=== PATIENT | female | born 1955 | race Caucasian/White ===

== ENCOUNTER 2020-08-11 10:42 | Day surgery (SDC) | payer BC, OTHER ==
[~2020-08-11 10:42] MED LIST: Dexamethasone 20 MG/5 ML VIAL ONE; Glycopyrrolate 0.2 MG/ML 5 ML SYRINGE ONE; Ketorolac Tromethamine 30 MG/ML VIAL ONE; Lidocaine 1% PF 5 ML VIAL ONE; Ondansetron PF 4 MG/2 ML Vial ONE; PHENYLEPHRINE-NS 100 MCG/ML 10 ML SYRINGE ONE; PROPOFOL 200 MG/20 ML VIAL ONE; Rocuronium Bromide 10 MG/ML (10ML VIAL) ONE; Succinylcholine 200 MG/10 ml SYRINGE FS ONE
[2020-08-11 11:35] LABS: #Lymphocytes 1.4 thou/uL (1.20-3.40); #Neutrophils 9.1 thou/uL (1.40-6.50); %Basophils 0.4 % (0.0-1.0); %Eosinophils 0.3 % (0.0-10.0); %Lymphocytes 12.4 % (21.0-51.0); %Monocytes 8.5 % (0.0-10.0); %Neutrophils 78.4 % (42.0-75.0); Hemoglobin 13.7 g/dL (12.0-16.0); Mean Corpuscular HGB CONC 33.8 g/dL (32.0-36.0); Mean Corpuscular Hemoglobin 30.6 pg (27.0-31.0); Mean Corpuscular Volume 90.4 fL (78.0-98.0); Mean Platelet Volume 8.4 fL (7.4-10.4); Platelet Count 190 thou/uL (130-400); RBC Distribution Width 11.7 % (11.5-14.5); Red Blood Cell (RBC) Count 4.49 mill/uL (4.20-5.40); White Blood Cell (WBC) Count 11.6 thou/uL (4.8-10.8)
[2020-08-11 11:56] LABS: ALT (SGPT) 28 U/L (8-55); AST (SGOT) 24 U/L (5-34); Albumin 4.3 g/dL (3.4-4.8); Alkaline Phosphatase 82 U/L (40-110); Anion Gap 13 mmol/L (10-20); BUN (Urea Nitrogen) 13 mg/dL (9.8-20.1); Bilirubin, Total 0.7 mg/dL (0.2-1.2); Calc. Creatinine Clearance 0 mL/min (70-130); Calcium 9.3 mg/dL (7.8-10.44); Carbon Dioxide 26 mmol/L (23-31); Chloride 104 mmol/L (98-107); Globulin 3.2 g/dL (2.4-3.5); Glucose 101 mg/dL (80-115); Lipase 21 U/L (8-78); Potassium 4.2 mmol/L (3.5-5.1); Protein, Total 7.5 g/dL (6.0-8.3); Sodium 139 mmol/L (136-145)
[2020-08-11] MEDS ORDERED: Iopamidol-370 76% 500 ML 1 ML ONE (13:23)
--- NOTE | 2020-08-11 14:38 | CT ---
CT Abdomen Pelvis W Con History: Generalized abdominal pain Comparison: None. Findings: Mild bronchiectasis right middle lobe. Lung bases are clear. No pneumothorax. No pericardia l effusion. Multiple hepatic hypodensities. No hydronephrosis. Multiple very small sub-5 mm renal cortical hypodensities. Mild fullness of the le ft renal pelvis. No retroperitoneal periaortic adenopathy. Dilated appendix with multiple appendicoliths. Extensive periappendiceal inflammation. Portal mucosal enhancement of the base. Mild secondary inflammation of the terminal ileum. Impression: Complicated acute appendicitis with multiple appendicoliths and poor mucosal enhancement of the appendiceal base. The appendix courses from the posterior aspect of the cecum medially.
[2020-08-11] MEDS ORDERED: Piperacillin/Tazobactam 3.375 GM VIAL ONE (15:04)
[2020-08-11 15:43] LABS: Bacteria/HPF None Seen HPF (None Seen); Bilirubin Negative (Negative); Blood, Urine Trace (Negative); Clarity Clear (Clear); Glucose, Urine (Dipstick) Normal (Negative); Ketone, Urine 10 mg/dL (Negative); Leukocyte 25 Leu/uL (Negative); Mucous/LPF Rare LPF (<2+); Nitrite Negative (Negative); Protein, Urine (Dipstick) Negative (Neg-Trace); RBC/HPF 0-3 HPF (0-3); Specific Gravity, Urine 1.014 (1.002-1.036); Squamous Epithelial 0-3 HPF (0-3); Urobilinogen Normal mg/dL (Less than 2); WBC/HPF 0-3 HPF (0-3)
--- NOTE | 2020-08-11 15:44 | HP ---
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 Pain described as crampy, occasionally sharp and has settled in the right lower quadrant since yesterday. Maximum intensity of pain is rated at 9/10. Pain is associated with some nausea, but no emesis. The patient denies any change in her bowel habits. She denies any fevers or chills. PAST MEDICAL HISTORY: The patient denies any previous medical problems. PAST SURGICAL HISTORY: She denies any previous surgeries. 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 She denies any cigarette smoking, ethanol, or illicit drug abuse. FAMILY HISTORY: Noncontributory for this patient's age. CURRENT MEDICATIONS: None except for multivitamins. ALLERGIES: THE PATIENT DENIES ANY KNOWN DRUG ALLERGIES. REVIEW OF SYSTEMS: Ten-point review of systems essentially unremarkable except as stated in past medical history and chief complaint. PHYSICAL EXAMINATION: GENERAL: Reveals a 65-year-old normally developed woman, who is otherwise coherent, interactive, and appears stated age. The patient is alert and oriented x3, appears to be in no acute distress at the time of my evaluation. VITAL SIGNS: Include blood pressure 108/78, her pulse is 79, respiratory rate is 22, temperature is 99.1 degrees Fahrenheit, oxygen saturation is 99% on room air. HEENT: Normocephalic and atraumatic. Pupils are equal, round, reactive to light and accommodation. Extraocular muscles are intact bilaterally. She has no scleral icterus present. HEART: Reveals regular rate and rhythm. No murmurs or gallops auscultated. LUNGS: Clear to auscultation bilaterally. Her breathing is regular and nonlabored. ABDOMEN: Soft with right lower quadrant tenderness to palpation. She has a positive Rovsing sign. Liver and spleen otherwise nonpalpable below costal margins. EXTREMITIES: Reveal 2+ radial and pedal pulses bilaterally. No ankle edema is present. NEUROLOGIC: Reveals no focal deficits present. LABORATORY FINDINGS: Today includes CBC with 11,600 white blood cells, hemoglobin and hematocrit 13.7 and 40.6 respectively. Platelet count 190,000. Metabolic profile; sodium 139, potassium 4.2, chloride is 104, bicarb is 26, BUN 13, creatinine 0.76, glucose 101, total bilirubin 0.7, AST and ALT 24 and 28 respectively. Serum lipase is normal at 21. I have personally reviewed CT scan of the abdomen and pelvis, which is remarkable for dilated appendix with multiple intraluminal appendicoliths. There is periappendiceal fat stranding. No pneumoperitoneum or significant free fluid is noted. IMPRESSION: Acute appendicitis. RECOMMENDATIONS AND PLAN: Laparoscopic appendectomy. Above findings and plan has been discussed with the patient and her adult daughter at bedside in the presence of her nurse. I have advised the patient of the risks and benefits of proposed surgery to include, but not limited to bleeding, infection, injury to bowel or surrounding structures. The patient indicates understanding of information provided. I have answered her questions. She has granted consent for this admission and surgical intervention. Job ID: [id number]
[2020-08-11] MEDS ORDERED: Morphine 4 MG/ML VIAL ONE (17:21)
[2020-08-11 17:22] LABS: PTT 24.9 sec (22.9-36.1); Prothrombin Time 13.3 sec (12.0-14.7)
[2020-08-11] MEDS ORDERED: Bupivacaine 0.25% HCL 30 ML VIAL ONE (18:19)
[2020-08-11] MEDS ORDERED: Lidocaine 1% w/Epinephrine 1:100K 20 ML VIAL ONE (18:19)
[2020-08-11] MEDS ORDERED: Midazolam HCl 2 mg/2 ml Vial ONE (18:45)
[2020-08-11] MEDS ORDERED: Lidocaine 2% Jelly 5 ML TUBE ONE (18:45)
[2020-08-11] MEDS ORDERED: Fentanyl 100 MCG/2 ML VIAL ONE (18:45)
[2020-08-11 19:28] LABS: SARS-CoV-2 NAA Rapid Test Not Detected (NotDetected)
[2020-08-11] MEDS ORDERED: HYDROcodone/Acetaminophen 5/325 mg Tablet ONE (21:24)
--- NOTE | 2020-08-11 21:44 | OP ---
DATE OF PROCEDURE: 08/11/2020 PREOPERATIVE DIAGNOSIS: Acute appendicitis. POSTOPERATIVE DIAGNOSIS: Acute appendicitis. PROCEDURE PERFORMED: Laparoscopic appendectomy. ANESTHESIA: General endotracheal. ESTIMATED BLOOD LOSS: 5 mL. FLUIDS GIVEN: 1000 mL of crystalloids. COUNTS: Sponge and instrument counts were verified as correct x2. COMPLICATIONS: None apparent at the time of operation. INDICATIONS FOR OPERATION: A 65-year-old woman, presented with insidious onset of periumbilical abdominal pain 3 days duration, which has settled in the right lower quadrant. Clinical and radiographic examination were consistent with acute appendicitis, for which the patient was brought to the operating room for laparoscopic appendectomy. Findings are consistent with dilated appendix with multiple appendicoliths. There was surrounding inflammation around the cecum and localized perforation. DESCRIPTION OF PROCEDURE: Informed consent was obtained from the patient, was brought to the operating room and placed in supine position. Following general anesthesia, the abdomen was sterilely prepped and draped in usual fashion. The skin below the umbilicus was infiltrated with 0.25% Marcaine with epinephrine. A small curvilinear infraumbilical incision was made using 11 scalpel. Umbilical stalk was grasped with Vinay and elevated. Veress needle was inserted through the incision and placed in peritoneal cavity through which the abdomen was insufflated with 2.5 L of CO2 gas. Intraabdominal pressure noted at 1 mmHg. Following abdominal insufflation, Veress needle was removed and a 5 mm trocar introduced using a Visiport under laparoscopy. Laparoscopy confirmed proper placement of the port. No injuries to underlying structures. Additional laparoscopy reveals the right lower quadrant completely obscured by omental adhesions. Under direct laparoscopy, two 5 mm suprapubic and left lower quadrant ports were placed after the overlying skin infiltrated with 0.25% Marcaine with epinephrine. Appropriate incision was made. The patient was placed in a Trendelenburg position, rotated to her left. I introduced a Prestige grasper through the left lower quadrant port site, using this to bluntly take down omental adhesions to reveal markedly dilated retrocecal appendix which is walled up by a loop of distal ileum. The ileal adhesions were bluntly taken down. Care taken to avoid injuries to the serosa. I then introduced the Endo Boyd forceps through the suprapubic port site grasping the appendix, which was elevated. Using the LigaSure device to serially divide the mesoappendix down to the base with good hemostasis. The appendix itself was divided at the appendicocecal junction between Endoloop and delivered of the abdominal cavity using an EndoCatch. Operative site was inspected for good hemostasis. Finding no other pathology, exploration was terminated. The abdomen was desufflated. All ports and instruments removed and accounted for x2. Skin incisions were closed using 4-0 Monocryl suture in subcuticular fashion. Dermabond was applied over incisional closure. The patient tolerated the operation without any apparent complication and was returned to recovery room in satisfactory condition. Job ID: [id number]
== END 2020-08-11 21:40 | disposition home or self-care (01) ==
LOC: ERS 10:42 → SDC/OP 19:36
PROVIDERS: ATTEND Surgery
PROC: 0DTJ4ZZ Resection of Appendix, Percutaneous Endoscopic Approach (ICD-10-PCS; principal; 2020-08-11)
DX: K35.80 Unspecified acute appendicitis (principal); K38.1 Appendicular concretions; Z20.828 Contact with and (suspected) exposure to other viral communicable diseases
CPT/HCPCS: 36415; 74177; 80053; 81003; 81015; 83690; 85025; 85610; 85730; 86850; 86900; 86901; 88304; 96365; 96375; J1100; J1885; J2250; J2270; J2405; J2543; J2704; J3010; Q9967; S0020; U0002